=== PATIENT | female | born 1935 | race Caucasian/White ===

== ENCOUNTER 2020-12-04 17:47 | Emergency (ER) | payer OTHER, MEDICAID ==
[~2020-12-04] VITALS: Ht 165.1 cm; Wt 68.0 kg
[2020-12-04 18:10] VITALS: BP_SYST 128
--- NOTE | 2020-12-04 18:10 | NUR ---
PT TO [facility] FOR EVALUATION.
--- NOTE | 2020-12-04 18:53 | NUR ---
Placed in room 6 . Placed on compliance monitor, blood pressure machine and pulse oximeter. To gown for exam. Side rails up.
--- NOTE | 2020-12-04 18:56 | NUR ---
Pt bib ambulance from facility with complaint of sternal wound protrusion with a rash that is spreading over 1 month. Baseline AAOX1 with GCS15. Pt in no acute distress VSS resting in gurney attached to monitor with side rails up. Addendum: 12/04/20 at 1902 by ALIAEDND Pt bib ambulance from facility with complaint of sternal wound protrusion with a rash that is spreading over 1 month. Baseline AAOX1 with GCS14. Pt in no acute distress VSS resting in gurney attached to monitor with side rails up.
--- NOTE | 2020-12-04 19:13 | NUR ---
Care enorsed to Yazan SCHULTE.
--- NOTE | 2020-12-04 19:14 | NUR ---
Received endorsement from day shift, Fully awake and alert but no verbal output noted, breathing spontaneously at room air, not in distress noted. With lesion noted at the anterior chest noted. Vital signs stable noted
--- NOTE | 2020-12-04 21:10 | NUR ---
Seen and examined by Dr. Ruvalcaba, ER Attending
[2020-12-04] MEDS ORDERED: NACL 0.9% 1,000 ML IV ONE (21:15)
--- NOTE | 2020-12-04 21:30 | NUR ---
# 20 gauge angiocath placed to left hand. Use of asceptic technique. Opsite placed over site. Blood return noted. Blood for lab drawn from site. Flushed with 10 cc of normal saline. No evidence of infiltration noted. Patient tolerated well.
[2020-12-04 22:13] LABS: BASOPHILS # (AUTO) 0.1 K/uL (0.0-0.2); BASOPHILS % (AUTO) 0.8 % (0.0-2.0); EOSINOPHILS # (AUTO) 0.4 K/uL (0.0-0.4); EOSINOPHILS % (AUTO) 4.8 % (0.0-4.0); HEMATOCRIT 41.1 % (36-48); HEMOGLOBIN 13.9 g/dL (12.0-16.0); LYMPHOCYTES # (AUTO) 1.5 K/uL (1.0-5.5); LYMPHOCYTES % (AUTO) 17.9 % (20.5-51.5); MEAN CORPUSCULAR HEMOGLOBIN 31 pg (27-31); MEAN CORPUSCULAR HGB CONC 34 % (32-36); MEAN CORPUSCULAR VOLUME 92 fL (79.0-98.0); MONOCYTES # (AUTO) 0.9 K/uL (0.0-1.0); MONOCYTES % (AUTO) 11.1 % (1.7-9.3); NEUTROPHILS # (AUTO) 5.3 K/uL (1.8-7.7); NEUTROPHILS % (AUTO) 65.4 % (40.0-70.0); PLATELET COUNT (AUTO) 278 K/uL (130-430); RED BLOOD CELL COUNT(AUTO) 4.46 MIL/uL (4.2-6.2); RED CELL DISTRIBUTION WIDTH 15.7 % (9.0-15.0); WHITE BLOOD COUNT (AUTO) 8.2 K/uL (4.8-10.8)
--- NOTE | 2020-12-04 22:20 | NUR ---
# 16 FR In and Out catheter with use of sterile technique. Immediate return of 50 ml clear dark yellow urine noted. Urine sample collected and sent to lab. Pt tolerated procedure well. Patient unable to toilet self.
[2020-12-04 22:36] LABS: BILIRUBIN,URINE NEGATIVE (NEGATIVE); BLOOD, URINE NEGATIVE (NEGATIVE); CLARITY/URINE SL CLOUDY (CLEAR); COLOR,URINE YELLOW (YELLOW); GLUCOSE,URINE NEGATIVE (NEGATIVE); KETONES,URINE NEGATIVE (NEGATIVE); LEUKOCYTE ESTERASE ,URINE 1+ (NEGATIVE); NITRITE, URINE NEGATIVE (NEGATIVE); PROTEIN URINE NEGATIVE (NEGATIVE); UROBILINOGEN,URINE 0.2 (0.2-1.0)
[2020-12-04 22:37] LABS: ANION GAP 8 (5-15); CALCIUM 9.1 mg/dL (8.4-11.0); CHLORIDE 103 mmol/L (98-107); CREATININE 0.64 mg/dL (0.55-1.30); GLUCOSE 119 mg/dL (70-99); POTASSIUM 3.8 mmol/L (3.5-5.1); SODIUM SERUM 135 mmol/L (136-145); UREA NITROGEN, BLOOD 13 mg/dL (8-21)
[2020-12-04 22:39] LABS: PROTHROMBIN TIME 10.3 SECS (9.5-12.5)
[2020-12-04 22:43] LABS: ALANINE AMINOTRANSFERASE 35 U/L (12-78); ALBUMIN 2.4 g/dL (3.4-4.8); ASPARTATE AMINOTRANSFERASE 27 U/L (10-37); TOTAL BILIRUBIN 0.2 mg/dL (0.0-1.0)
[2020-12-04 22:46] LABS: BACTERIA,URINE MANY /HPF (None Seen); WBC,URINE 20-50 /HPF (0-3)
--- NOTE | 2020-12-05 01:38 | NUR ---
Patient for discharge, panel monitor arrange for transport bacK to [facility]
--- NOTE | 2020-12-05 01:55 | NUR ---
Re-assesed by Dr. Gibbons
[2020-12-05] MEDS ORDERED: NITR-85 PEG (02:07)
--- NOTE | 2020-12-05 03:19 | NUR ---
Asleep, not in distress noted.
--- NOTE | 2020-12-05 05:18 | NUR ---
[facility] contacted and spoke with Mr. Casiano, made aware that the patient will be discharge and transport ETA within 3-4hours.
--- NOTE | 2020-12-05 07:10 | NUR ---
Endorsed to day shift ERIS Birch in stable condition for continuity of care, awaiting for transport
--- NOTE | 2020-12-05 07:20 | NUR ---
REPORT RECEIVED FROM MIRIAM SCHULTE. PT IS DC'D AND WILL BE RETURNING TO [facility]
--- NOTE | 2020-12-05 08:32 | NUR ---
CALLED [facility] TO NOTIFY THE FACILITY THAT THE PT WILL BE RETURNING BACK TO THEM
[2020-12-05 08:33] VITALS: BP_SYST 118
--- NOTE | 2020-12-05 08:59 | NUR ---
Patient given written and verbal discharge instructions and verbalizes understanding. ER MD discussed with patient the results and treatment provided. Patient in stable condition. ID arm band removed. Rx of Macrobid given. Patient educated on pain management and to follow up with PMD. Pain Scale 0/10. Opportunity for questions provided and answered. Medication side effect fact sheet provided.
== END 2020-12-05 08:33 | disposition home or self-care (01) ==
LOC: SED 17:47
DX: N39.0 Urinary tract infection, site not specified (principal); L98.8 Other specified disorders of the skin and subcutaneous tissue; R21 Rash and other nonspecific skin eruption; Z88.0 Allergy status to penicillin; Z79.899 Other long term (current) drug therapy
CPT/HCPCS: 36415; 71045; 80053; 81000; 84484; 85025; 85610; 85730; 87086; 93005; 96360; 99285; J7030